=== PATIENT | female | born 1980 | race Caucasian/White ===

== ENCOUNTER 2016-06-28 09:58 | Inpatient (IN) | payer MEDICARE, MEDICAID ==
[~2016-06-28] VITALS: Ht 195.6 cm; Wt 103.0 kg
[~2016-06-28 09:58] MED LIST: ALBU6.7H IH; BENZ1TAB10 PO; BUSP10TA23 PO; HALO5 PO; IPRA4AER IH; LAMO100 PO; LURA40 PO; OMEP20 PO
[2016-06-28] MEDS ORDERED: ZOLPIDEM TARTRATE 10 MG TABLET PO PRN (10:45)
[2016-06-28] MEDS ORDERED: LORazepam 2 MG TABLET PO PRN (10:45)
[2016-06-28 10:50] VITALS: BP 123/80
[2016-06-28] MEDS ORDERED: GABA-531 PO (11:16)
[2016-06-28] MEDS ORDERED: LAMO25 PO (11:16)
[2016-06-28] MEDS ORDERED: FLUO20CA30 PO (11:16)
[2016-06-28] MEDS ORDERED: -PHARMACY VACCINE NOTE- MISC ONE ×2 (11:30)
[2016-06-28 12:00] VITALS: BP 120/71
[2016-06-28] MEDS ORDERED: ALBUTEROL SULFATE HFA 90 MCG/PUFF 8 GM INHALER IH PRN ×2 (13:00→21:15)
[2016-06-28 16:08] VITALS: BP 111/62
[2016-06-28] MEDS ORDERED: ACETAMINOPHEN 325 MG TABLET PO PRN (21:15)
[2016-06-28] MEDS ORDERED: IBUPROFEN 400 MG TABLET PO PRN (21:15)
[2016-06-29] VITALS: BP 119/75
[2016-06-29 08:07] VITALS: BP 125/60
[2016-06-29 08:21] LABS: BASOPHILS % (AUTO) 0.6 % (0.0-2.0); EOSINOPHILS % (AUTO) 1.1 % (1.0-6.0); HEMATOCRIT 39.5 % (36-46); HEMOGLOBIN 12.9 g/dL (12.0-16.0); LYMPHOCYTES % (AUTO) 35.5 % (22.0-44.0); MEAN CORPUSCULAR HEMOGLOBIN 28.5 pg (26.0-34.0); MEAN CORPUSCULAR HGB CONC 32.6 G/dL (31.0-37.0); MEAN CORPUSCULAR VOLUME 87 fL (80-100); MONOCYTES # (AUTO) 0.5 K/uL (0.1-1.0); MONOCYTES % (AUTO) 6.2 % (2.0-9.0); NEUTROPHILS # (AUTO) 4.8 K/uL (1.8-7.7); NEUTROPHILS % (AUTO) 56.6 % (40.0-70.0); PLATELET COUNT (AUTO) 273 K/uL (150-450); RED BLOOD CELL COUNT(AUTO) 4.54 MIL/uL (4.00-5.20); RED CELL DISTRIBUTION WIDTH 13.5 % (11.5-14.5); WHITE BLOOD COUNT (AUTO) 8.4 K/uL (4.5-11.0)
[2016-06-29 08:43] LABS: ALANINE AMINOTRANSFERASE 24 U/L (12-78); ALBUMIN 3.9 g/dL (3.4-5.0); ANION GAP 10 mmol/L (8-16); ASPARTATE AMINOTRANSFERASE 16 U/L (15-37); BILIRUBIN,TOTAL 0.6 mg/dL (0.1-1.0); CALCIUM, TOTAL 9.1 mg/dL (8.8-10.5); CARBON DIOXIDE 25 mmol/L (22-29); CHLORIDE 104 mmol/L (98-107); CHOL/HDL RATIO 4.1 (3.9-5.7); CREATININE 0.59 mg/dL (0.60-1.30); GLOMERULAR FILTR. RATE CALC > 60 mL/min (>60); POTASSIUM 4.2 mmol/L (3.5-5.1); SODIUM SERUM 139 mmol/L (136-145); TOTAL PROTEIN, SERUM 7.2 g/dL (6.4-8.2); UREA NITROGEN, BLOOD 11 mg/dL (7-18)
[2016-06-29] MEDS: ARIPiprazole 5 MG TABLET PO SCH (08:56)
[2016-06-29] MEDS: FLUoxetine HCL 20 MG CAPSULE PO SCH (08:56)
[2016-06-29 16:08] VITALS: BP 116/68
[2016-06-30] VITALS: BP 123/82
[2016-06-30 08:08] VITALS: BP 115/65
[2016-06-30] MEDS: ARIPiprazole 5 MG TABLET PO SCH (08:47)
[2016-06-30] MEDS: FLUoxetine HCL 20 MG CAPSULE PO SCH (08:47)
[2016-06-30 16:16] VITALS: BP 105/62
[2016-06-30] MEDS ORDERED: MAGNESIUM HYDROXIDE SUSPENSION 30 ML UDCUP PO PRN (17:45)
[2016-07-01 01:23] VITALS: BP 106/64
[2016-07-01 08:08] VITALS: BP 145/82
[2016-07-01] MEDS: FLUoxetine HCL 20 MG CAPSULE PO SCH (08:24)
[2016-07-01] MEDS: ARIPiprazole 5 MG TABLET PO SCH (08:24)
[2016-07-01 16:22] VITALS: BP 125/71
[2016-07-01] MEDS ORDERED: BENZOCAINE/MENTHOL LOZENGE PO PRN (17:00)
[2016-07-02 00:26] VITALS: BP 126/68
[2016-07-02 08:08] VITALS: BP 115/67
[2016-07-02] MEDS: ARIPiprazole 5 MG TABLET PO SCH (08:21)
[2016-07-02] MEDS: FLUoxetine HCL 20 MG CAPSULE PO SCH (08:21)
[2016-07-02] MEDS ORDERED: FLUO-191 PO (12:17)
[2016-07-02] MEDS ORDERED: ARIP5TAB9 PO (12:17)
== END 2016-07-02 14:35 | disposition home or self-care (01) | DRG 885 ==
LOC: B2X 10:53
PROVIDERS: ADMIT Psychiatry & Neurology Psychiatry; ATTEND Psychiatry & Neurology Psychiatry
DX: F33.2 Major depressive disorder, recurrent severe without psychotic features (principal); R45.851 Suicidal ideations; D64.9 Anemia, unspecified; F60.3 Borderline personality disorder; G40.909 Epilepsy, unspecified, not intractable, without status epilepticus; F17.200 Nicotine dependence, unspecified, uncomplicated; F19.90 Other psychoactive substance use, unspecified, uncomplicated; J45.909 Unspecified asthma, uncomplicated; K21.9 Gastro-esophageal reflux disease without esophagitis; F15.90 Other stimulant use, unspecified, uncomplicated; Z79.899 Other long term (current) drug therapy; Z90.49 Acquired absence of other specified parts of digestive tract; Z91.5 Personal history of self-harm; Z81.8 Family history of other mental and behavioral disorders; Z82.49 Family history of ischemic heart disease and other diseases of the circulatory system; Z88.8 Allergy status to other drugs, medicaments and biological substances; Z71.6 Tobacco abuse counseling; Z71.51 Drug abuse counseling and surveillance of drug abuser
CPT/HCPCS: 83036

== ENCOUNTER 2016-07-12 15:31 | Inpatient (IN) | payer MEDICARE, MEDICAID ==
[~2016-07-12] VITALS: Ht 195.6 cm; Wt 100.7 kg
[~2016-07-12 15:31] MED LIST changes: -ALBU6.7H IH; +ARIP5TAB9 PO; -BENZ1TAB10 PO; -BUSP10TA23 PO; +FLUO-191 PO; -HALO5 PO; -IPRA4AER IH; -LAMO100 PO; -LURA40 PO; -OMEP20 PO
[2016-07-12] MEDS ORDERED: LAMO25 PO (16:22)
[2016-07-12 17:26] LABS: ANION GAP 9 mmol/L (8-16); BASOPHILS % (AUTO) 0.5 % (0.0-2.0); CALCIUM, TOTAL 9.1 mg/dL (8.8-10.5); CARBON DIOXIDE 29 mmol/L (22-29); CHLORIDE 106 mmol/L (98-107); CREATININE 0.65 mg/dL (0.60-1.30); EOSINOPHILS % (AUTO) 1.4 % (1.0-6.0); GLOMERULAR FILTR. RATE CALC > 60 mL/min (>60); HEMATOCRIT 36.1 % (36-46); HEMOGLOBIN 11.6 g/dL (12.0-16.0); LYMPHOCYTES # (AUTO) 3.1 K/uL (1.0-4.8); LYMPHOCYTES % (AUTO) 36.7 % (22.0-44.0); MEAN CORPUSCULAR HGB CONC 32.1 G/dL (31.0-37.0); MEAN CORPUSCULAR VOLUME 87 fL (80-100); MONOCYTES # (AUTO) 0.5 K/uL (0.1-1.0); MONOCYTES % (AUTO) 6.4 % (2.0-9.0); NEUTROPHILS # (AUTO) 4.6 K/uL (1.8-7.7); PLATELET COUNT (AUTO) 303 K/uL (150-450); POTASSIUM 3.9 mmol/L (3.5-5.1); RED BLOOD CELL COUNT(AUTO) 4.14 MIL/uL (4.00-5.20); RED CELL DISTRIBUTION WIDTH 13.3 % (11.5-14.5); SODIUM SERUM 144 mmol/L (136-145); UREA NITROGEN, BLOOD 10 mg/dL (7-18); WHITE BLOOD COUNT (AUTO) 8.4 K/uL (4.5-11.0)
[2016-07-12 17:33] LABS: ALANINE AMINOTRANSFERASE 18 U/L (12-78); ALBUMIN 3.8 g/dL (3.4-5.0); ASPARTATE AMINOTRANSFERASE 16 U/L (15-37); BILIRUBIN,TOTAL 0.5 mg/dL (0.1-1.0); TOTAL PROTEIN, SERUM 7.4 g/dL (6.4-8.2)
[2016-07-12] MEDS ORDERED: ZOLPIDEM TARTRATE 10 MG TABLET PO PRN (20:15)
[2016-07-12] MEDS: LORazepam 2 MG TABLET PO PRN (21:16)
[2016-07-12] MEDS: HALOPERIDOL 5 MG TABLET PO PRN (21:16)
[2016-07-12 21:21] VITALS: BP 115/67
[2016-07-12 21:22] LABS: APPEARANCE,URINE CLOUDY (CLEAR); GLUCOSE, URINE (UA) NEGATIVE (NEGATIVE); KETONES,URINE NEGATIVE (NEGATIVE); LEUKOCYTE ESTERASE ,URINE SMALL (NEGATIVE); OCCULT BLOOD,URINE NEGATIVE (NEGATIVE); PROTEIN,URINE TRACE (NEGATIVE)
[2016-07-12 21:23] LABS: ADD UA MICROSCOPIC YES
[2016-07-12 21:41] LABS: SQUAMOUS EPITHELIAL CELL,UR Moderate /LPF (None Seen)
[2016-07-12 21:42] LABS: RBC,URINE 0-2 /HPF (0-2)
[2016-07-13 08:01] VITALS: BP 114/78
[2016-07-13] MEDS: FLUoxetine HCL 20 MG CAPSULE PO SCH (10:35)
[2016-07-13] MEDS: LamoTRIgine 25 MG TABLET PO SCH (10:35)
[2016-07-13] MEDS: ARIPiprazole 5 MG TABLET PO SCH (10:36)
[2016-07-13 16:37] VITALS: BP 105/54
[2016-07-13] MEDS ORDERED: ALBUTEROL SULFATE HFA 90 MCG/PUFF 8 GM INHALER IH PRN (20:30)
[2016-07-13] MEDS ORDERED: IBUPROFEN 400 MG TABLET PO PRN (20:30)
[2016-07-13] MEDS ORDERED: ACETAMINOPHEN 325 MG TABLET PO PRN (20:30)
[2016-07-14 06:56] LABS: CHOL/HDL RATIO 3.7 (3.9-5.7); THYROID STIMULATING HORMONE 1.86 uIU/mL (0.36-3.74)
[2016-07-14 07:07] VITALS: BP 120/78
[2016-07-14 07:38] LABS: HEMOGLOBIN A1C 5.3 % (4.5-6.2)
[2016-07-14 08:01] VITALS: BP 109/68
[2016-07-14] MEDS: FLUoxetine HCL 20 MG CAPSULE PO SCH (08:05)
[2016-07-14] MEDS: LamoTRIgine 25 MG TABLET PO SCH (08:05)
[2016-07-14] MEDS: ARIPiprazole 5 MG TABLET PO SCH (08:05)
[2016-07-14 16:14] VITALS: BP 119/63
[2016-07-14 16:34] VITALS: BP 113/64
[2016-07-14] MEDS: HALOPERIDOL 5 MG TABLET PO PRN (16:58)
[2016-07-14] MEDS: LORazepam 2 MG TABLET PO PRN (16:59)
[2016-07-14 17:34] VITALS: BP 128/72
[2016-07-15 08:02] VITALS: BP 118/60
[2016-07-15] MEDS: LamoTRIgine 25 MG TABLET PO SCH (08:26)
[2016-07-15] MEDS: ARIPiprazole 5 MG TABLET PO SCH (08:26)
[2016-07-15] MEDS: FLUoxetine HCL 20 MG CAPSULE PO SCH (08:26)
[2016-07-15] MEDS: HALOPERIDOL 5 MG TABLET PO PRN (17:06)
[2016-07-15] MEDS: LORazepam 2 MG TABLET PO PRN (17:06)
[2016-07-15 17:13] VITALS: BP 102/60
[2016-07-16] MEDS: ARIPiprazole 5 MG TABLET PO SCH (08:27)
[2016-07-16] MEDS: FLUoxetine HCL 20 MG CAPSULE PO SCH (08:28)
[2016-07-16] MEDS: LamoTRIgine 25 MG TABLET PO SCH (08:28)
[2016-07-16 08:31] VITALS: BP 104/63
[2016-07-16 08:59] VITALS: BP 104/63
== END 2016-07-16 15:00 | disposition home or self-care (01) | DRG 885 ==
LOC: EMS 15:36 → 3EX 19:53
PROVIDERS: ADMIT Psychiatry & Neurology Child & Adolescent Psychiatry; ATTEND Psychiatry & Neurology Child & Adolescent Psychiatry
DX: F25.1 Schizoaffective disorder, depressive type (principal); F15.20 Other stimulant dependence, uncomplicated; R45.851 Suicidal ideations; F17.210 Nicotine dependence, cigarettes, uncomplicated; F12.90 Cannabis use, unspecified, uncomplicated; E03.9 Hypothyroidism, unspecified; D64.9 Anemia, unspecified; F60.3 Borderline personality disorder; F31.9 Bipolar disorder, unspecified; J45.909 Unspecified asthma, uncomplicated; F19.10 Other psychoactive substance abuse, uncomplicated; F99 Mental disorder, not otherwise specified; Z79.899 Other long term (current) drug therapy; Z90.49 Acquired absence of other specified parts of digestive tract; Z91.14 Patient's other noncompliance with medication regimen; Z71.6 Tobacco abuse counseling; Z71.51 Drug abuse counseling and surveillance of drug abuser; Z88.8 Allergy status to other drugs, medicaments and biological substances; Z91.040 Latex allergy status
CPT/HCPCS: 83036; 83540; 83550; 84443; 87086; 99285; G0480